=== PATIENT | male | born 1950 | race Caucasian/White ===

== ENCOUNTER 2016-12-09 10:21 | Emergency (ER) | payer OTHER, MEDICARE ==
[~2016-12-09] VITALS: Ht 182.9 cm; Wt 96.2 kg
[2016-12-09 10:28] VITALS: BP 174/80
--- NOTE | 2016-12-09 11:49 | ED MVC/FALL/TRAUMA COMPLAINT ---
History of Present Illness General Chief Complaint: Fall Stated Complaint: FALL BACK PAIN Source: patient Exam Limitations: no limitations Vital Signs & Intake/Output Vital Signs & Intake/Output Vital Signs Date Time Temp Pulse Resp B/P B/P Pulse O2 O2 Flow FiO2 Mean Ox Delivery Rate 12/09 1217 97.8 12/09 1028 97.8 86 18 174/80 97 Room Air Allergies Coded Allergies: No Known Allergies (12/09/16) Triage Note: PT STATES THAT HE SLIPPED IN BATH TUB ON MONDAY AND HIT HIS MID BACK. WENT TO HIS CHIROPRACTOR WHO SUGGESTED HE GET AN XRAY Triage Nurses Notes Reviewed? yes HPI: 66 yo M PMH HLD presenting with back pain s/p fall. 2 days ago while patient was walking in the bathroom, he slipped on a puddle of water on the floor, fell backwards striking right exterior back on the edge of the bathtub, mild to moderate pain since that time, worse with movement or deep breathing. Denies head/neck trauma/pain, LOC, focal neurologic symptoms, palpitations, shortness of breath, abdominal pain, extremity pain. Ongoing pain since that time, untreated, saw chiropractor today who sent him to the emergency department for further evaluation. (HERSON GRADY MD) Past History Travel History Traveled to [place] past 21 day No Medical History Any Pertinent Medical History? 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 No (HERSON GRADY MD) Review of Systems Review of Systems Constitutional: Reports: no symptoms. Eyes: Reports: no symptoms. Ears, Nose, Throat, Mouth: Reports: no symptoms. Respiratory: Reports: no symptoms. Cardiovascular: Reports: chest pain. Gastrointestinal/Abdominal: Reports: no symptoms. Genitourinary: Reports: no symptoms. Musculoskeletal: Reports: back pain. Skin: Reports: no symptoms. Neurological/Psychological: Reports: no symptoms. All Other Systems: Reviewed and Negative (HERSON GRADY MD) Physical Exam Physical Exam General Appearance: well developed/nourished, no apparent distress, alert Head: atraumatic Eyes: Bilateral: normal appearance. Ears, Nose, Throat, Mouth: moist mucous membrane Neck: normal inspection, full range of motion Respiratory: normal breath sounds, no respiratory distress Cardiovascular: regular rate/rhythm, normal peripheral pulses Gastrointestinal: normal bowel sounds, soft, non-tender Back: see below Comments: HEENT: atraumatic Cervical spine: No bony midline C-spine tenderness palpation with full range of motion Chest: No tenderness palpation over anterior chest wall or clavicles, equal breath sounds bilaterally Back: Moderate tenderness palpation of right midthoracic paraspinal muscles without crepitus or instability, no significant midline bony tenderness palpation Neurologic: Bilateral upper and lower extremity strength 5/5, no sensory deficits Core Measures ACS in differential dx? No Severe Sepsis Present: No Septic Shock Present: No (MIGUEL A CHICAS,HERSON) Progress Differential Diagnosis: C/T/L spine injury, pnemothorax Plan of Care: Physician MDM: 66 yo M presenting with right upper back pain s/p fall. VSS, trauma exam as above. DDx: Thoracic spinal fracture, Rib Fracture, PTX, Soft tissue injury. Patient given 600 mg of ibuprofen with complete resolution of pain. Chest x-ray without evidence of rib fracture, pneumothorax, or airspace disease. Thoracic spine x-rays without acute compression fracture. Given the patient has minimal bony pain on exam, ambulatory with an even gait without assistance, pain completely resolved ibuprofen, low concern for missed thoracic back fracture or rib fracture, will not obtain CT of the chest or thoracic spine at this time. Patient discharged with return precautions, instructed to follow- up with his ED or his PMD for nonresolution of pain after 3-5 days. The plan of care was discussed with the patient as expressed agreement and understanding. (MIGUEL A CHICAS,HERSON) Departure Departure Disposition: HOME OR SELF CARE Condition: Stable Clinical Impression Primary Impression: Back pain Referrals: IFEOMA MARTIN,CHRISTIAN Beyer (PCP/Family) Additional Instructions: Take ibuprofen (600 mg) every 6 hours for back pain. Follow up with your primary care physician in the next 2-3 days. Return to the ED for any new, worsening, or concerning symptoms. Departure Forms: Customer Survey General Discharge Information (MIGUEL A CHICAS,HERSON) PA/UTILITY WORKER Co-Sign Statement Statement: ED Attending supervision documentation- [X] I saw and evaluated the patient. I have also reviewed all the pertinent lab results and diagnostic results. I agree with the findings and the plan of care as documented in the PA's/UTILITY WORKER's documentation. [X] I have reviewed the ED Record and agree with the PA's/UTILITY WORKER's documentation. [] Additions or exceptions (if any) to the PAs/UTILITY WORKER's note and plan are summarized below: [] (ELIZABETH CHICAS,MYA)
--- NOTE | 2016-12-09 12:40 | RADIOLOGY REPORT ---
EXAMINATION: XR THORACIC SPINE X-RAY CHEST PA AND LATERAL CLINICAL INFORMATION: Lower thoracic back pain. Rib fractures COMPARISON: None TECHNIQUE: 3 views of the thoracic spine were obtained. PA and lateral views of the chest. FINDINGS: Low lung volumes. Mild bibasilar atelectasis, right greater than left. No pleural effusion or pneumothorax. Tortuous and/or ectatic thoracic aorta. Normal heart size. Degenerative changes of the thoracic spine. No displaced rib fracture seen although dedicated rib views were not obtained. Mild multilevel degenerative changes of the thoracic spine. No compression fracture seen. Normal sagittal alignment with no madi- or retrolisthesis. Anterior and lateral marginal osteophytes are present at several levels. Posterior elements are intact. IMPRESSION: Low lung volumes with right greater than left bibasilar atelectasis. Degenerative changes of the thoracic spine with no compression fracture seen.
== END 2016-12-09 13:07 ==
LOC: ERH 10:21
DX: M54.9 Dorsalgia, unspecified (principal)
CPT/HCPCS: 72070

== ENCOUNTER 2017-02-22 12:49 | Emergency (ER) | payer OTHER, MEDICARE ==
[~2017-02-22] VITALS: Ht 182.9 cm; Wt 95.3 kg
--- NOTE | 2017-02-22 12:58 | ED GENERAL ADULT ---
See Addendum History of Present Illness General Chief Complaint: General Adult Stated Complaint: ELAVATED B/P ACCORDING TO THERAPIST Source: patient Exam Limitations: no limitations Vital Signs & Intake/Output Vital Signs & Intake/Output Vital Signs Date Time Temp Pulse Resp B/P B/P Pulse O2 O2 Flow FiO2 Mean Ox Delivery Rate 02/22 1459 98.3 72 20 142/68 96 Room Air 02/22 1355 97.2 91 20 200/92 02/22 1313 200/92 02/22 1252 97.2 91 20 200/100 98 ED Intake and Output 02/23 0000 02/22 1200 Intake Total 0 Output Total Balance 0 Intake, Oral 0 Patient 210 lb Weight Allergies Coded Allergies: Iodinated Contrast- Oral and IV Dye (Mild, SOB 02/22/17) doxycycline (TACHYCARDIA 02/22/17) Sulfa (Sulfonamide Antibiotics) (TACHYCARDIA 02/22/17) aripiprazole (TACHYCARDIA 02/22/17) imipramine (TACHYCARDIA 02/22/17) trimethoprim (TACHYCARDIA 02/22/17) Reconcile Medications Clonazepam 0.5 MG TABLET ANXIETY (Reported) Hydrocortisone 2.5 % CREAM..G. 1 KEN TOP BID PRN ITCHING (Reported) apply to affected area(s) Lisinopril 20 MG TABLET 1 TAB PO DAILY HTN Mirtazapine (Remeron) 30 MG TABLET 1 TAB PO QHS SLEEP HELP (Reported) Simvastatin (Simvastatin*) 10 MG TABLET 1 TAB PO QPM HIGH CHOLESTROL ( Reported) Triage Note: PT PRESENTS TO ER FROM THERAPISTS OFFICE. PT STATES THERAPIST TOLD HIM HIS BP WAS HIGH AND HE NEEDED TO GET CHECKED OUT. PT DENIES ANY COMPLAINTS ON ARRIVAL. PT STATES OVER THE LAST MONTH HE HAS BEEN DRINKING HEVILY AND OCCASIONALLY GETS DIZZY. PT DENIES CP, SOB, AND DIZZINESS AT THIS TIME. BP AT TRIAGE 200/100 Triage Nurses Notes Reviewed? yes Onset: Abrupt Duration: hour(s): Timing: recent history HPI: 02/22/17 1:45 PM 66-year-old male presents to the emergency department for elevated blood pressure. According to the patient he was seeing his therapist today and his blood pressure was checked and found to be 200/100. He denies any chest pain shortness of breath or other complaints. The onset of the symptoms were abrupt, the duration was today, the severity is significant as his symptoms required him to come to the emergency department for care. Past History Travel History Traveled to [place] past 21 day No Medical History Any Pertinent Medical History? 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 No Review of Systems Review of Systems Constitutional: Reports: no symptoms. EENTM: Reports: no symptoms. Respiratory: Reports: no symptoms. Denies: short of breath. Cardiovascular: Reports: no symptoms. Denies: chest pain. GI: Reports: no symptoms. Genitourinary: Reports: no symptoms. Musculoskeletal: Reports: no symptoms. Skin: Reports: no symptoms. Neurological/Psychological: Reports: no symptoms. Denies: headache. Hematologic/Endocrine: Reports: no symptoms. Immunologic/Allergic: Reports: no symptoms. All Other Systems: Reviewed and Negative Physical Exam Physical Exam General Appearance: well developed/nourished, no apparent distress, alert, awake Head: atraumatic, normal appearance Eyes: Bilateral: normal appearance, PERRL, EOMI. Ears, Nose, Throat: normal pharynx, normal ENT inspection Neck: normal inspection, supple Respiratory: normal breath sounds, chest non-tender, no respiratory distress Cardiovascular: regular rate/rhythm Peripheral Pulses: 4+ radial (R), 4+ radial (L) Gastrointestinal: non-tender Back: normal range of motion Extremities: normal inspection, normal range of motion, no edema Neurologic/Psych: no motor/sensory deficits, awake, alert, oriented x 3 Skin: intact, normal color, warm/dry Core Measures ACS in differential dx? No CVA/TIA Diagnosis: No Severe Sepsis Present: No Septic Shock Present: No Progress Differential Diagnoses I considered the following diagnoses in my evaluation of the patient: [ Hypertension, renal insufficiency, benzodiazepine withdrawal,] Plan of Care: Orders Procedure Date/time Status URINALYSIS 02/22 133 Complete TROPONIN LEVEL 02/22 133 Complete COMPREHENSIVE METABOLIC PANEL 02/22 133 Complete CBC WITHOUT DIFFERENTIAL 02/22 133 Complete EKG 02/22 133 Active Laboratory Tests 02/22/17 1359: Urine Color YEL, Urine Clarity CLEAR, Urine pH 6.5, Ur Specific [place] 1.010, Urine Protein NEG, Urine Ketones NEG, Urine Nitrite NEG, Urine Bilirubin NEG, Urine Urobilinogen 0.2, Ur Leukocyte Esterase NEG, Ur Microscopic EXAM NOT REQUIRED, Urine Hemoglobin NEG, Urine Glucose NEG 02/22/17 1351: Anion Gap 10, Estimated GFR > 60, BUN/Creatinine Ratio 12.2, Glucose 123 H, Calcium 9.5, Total Bilirubin 0.8, AST 25, ALT 46, Alkaline Phosphatase 65, Troponin I < 0.01, Total Protein 7.1, Albumin 4.3, Globulin 2.8, Albumin/ Globulin Ratio 1.5, CBC w Diff NO MAN DIFF REQ, RBC 4.82, MCV 92.0, MCH 31.3 H, RDW 14.1, MPV 8.1, Gran % 71.3, Lymphocytes % 21.9, Monocytes % 5.8, Eosinophils % 0.7, Basophils % 0.3, Absolute Granulocytes 4.2, Absolute Lymphocytes 1.3, Absolute Monocytes 0.3, Absolute Eosinophils 0, Absolute Basophils 0, PUBS MCHC 34.1 Initial ED EKG: PENDING Departure Departure Disposition: STILL A PATIENT Condition: Stable Clinical Impression Primary Impression: Hypertension Referrals: IFEOMA MARTIN,CHRISTIAN Beyer (PCP/Family) Departure Forms: Customer Survey General Discharge Information Prescriptions: Current Visit Scripts Lisinopril 1 TAB PO DAILY #30 TAB Comments EKG and labs were unremarkable. The patient was asymptomatic. Blood pressure came down with by mouth lisinopril. He was started on lisinopril. He'll follow -up with his doctor this week. Critical Care Note Critical Care Note Critical Care Time: non-applicable
[2017-02-22] MEDS ORDERED: REMERON30 M3 PO (13:42)
[2017-02-22] MEDS ORDERED: SIMVASTATIN10 M1 PO (13:43)
[2017-02-22 14:08] LABS: ABSOLUTE BASOPHIL COUNT 0 /CUMM (0.0-0.2); ABSOLUTE EOSINOPHIL COUNT 0 /CUMM (0.0-0.7); ABSOLUTE GRANULOCYTE CT 4.2 /CUMM (1.4-6.5); ABSOLUTE LYMPH COUNT 1.3 /CUMM (1.2-3.4); ABSOLUTE MONOCYTE COUNT 0.3 /CUMM (0.10-0.60); BASOPHIL % 0.3 % (0.0-2.0); EOSINOPHIL % 0.7 % (0-5); GRANULOCYTE % 71.3 % (42.2-75.2); HEMATOCRIT 44.3 % (42-52); MEAN CORPUSCULAR HGB 31.3 PG (27.0-31.0); MEAN CORPUSCULAR HGB CONC 34.1 G/DL (33.0-37.0); MEAN PLATELET VOLUME 8.1 FL (7.4-10.4); PLATELET COUNT 174 /CUMM (130-400); RBC DISTRIBUTION WIDTH 14.1 % (11.5-14.5); RED BLOOD CELL CT 4.82 /CUMM (4.70-6.10); WHITE BLOOD CELL COUNT 5.9 /CUMM (4.8-10.8)
[2017-02-22] MEDS ORDERED: CLONAZEPAM0.5 M2 (14:37)
[2017-02-22] MEDS ORDERED: HYDROCORTISO453.6 G2 TOP (14:40)
[2017-02-22] MEDS ORDERED: LISINOPRIL20 M1 PO (14:53)
[2017-02-22 14:59] VITALS: BP 142/68
== END 2017-02-22 15:10 ==
LOC: ERH 12:49
PROVIDERS: Emergency Medicine
DX: I10 Essential (primary) hypertension (principal)
CPT/HCPCS: 81003; 93005; 93010